=== PATIENT | male | born 1965 | race Caucasian/White ===

== ENCOUNTER 2017-07-15 15:42 | Inpatient (IN) | payer MEDICARE, MEDICAID ==
[~2017-07-15] VITALS: Ht 152.4 cm; Wt 64.5 kg
[2017-07-15] MEDS ORDERED: mag hydrox/Alum hydrox/simeth 30ml oral suspension PO PRN (22:20)
[2017-07-15] MEDS ORDERED: acetaminophen 325mg tablet PO PRN (22:20)
[2017-07-15 22:44] VITALS: BP 122/79
[2017-07-16] MEDS ORDERED: pneumococcal 23-VAL P-sac vacc 25 mcg/0.5ml vial IMVAC ONE (06:15)
[2017-07-16] MEDS ORDERED: FLU VACC QS2017-18 36MOS UP/PF 60 MCG/0.5 ML SYRINGE IMVAC ONE (06:15)
[2017-07-16] MEDS ORDERED: magnesium hydroxide 30ml (MOM) UD suspension PO PRN (07:00)
[2017-07-16 08:14] VITALS: BP 102/65
[2017-07-16] MEDS ORDERED: NO HOME MEDS (11:07)
[2017-07-16] MEDS: Protein Shake (high protein) 240ml (8oz) cup PO SCH (18:00)
[2017-07-16] MEDS: Protein Smoothie (high protein) 240ml (8oz) cup PO SCH (18:00)
[2017-07-16] MEDS ORDERED: non-formulary drug (invega 1.5 MG) PO ONE (18:10)
[2017-07-16] MEDS ORDERED: traZODone 50mg tablet PO PRN (18:10)
[2017-07-16 20:00] VITALS: BP 102/66
[2017-07-16] MEDS ORDERED: PALIPERIDONE 3 MG TAB.ER.24 PO ONE (20:25)
[2017-07-17] MEDS: Protein Smoothie (high protein) 240ml (8oz) cup PO SCH ×3 (08:00→18:00)
[2017-07-17] MEDS: Protein Shake (high protein) 240ml (8oz) cup PO SCH ×3 (08:00→18:00)
[2017-07-17] MEDS ORDERED: PALIPERIDONE 3 MG TAB.ER.24 PO SCH (08:00)
[2017-07-17] MEDS: CITALOpram 10mg tablet PO SCH (08:12)
[2017-07-17] MEDS: acetaminophen 325mg tablet PO PRN ×2 (08:14→19:36)
[2017-07-17 08:18] VITALS: BP 104/59
[2017-07-17] MEDS: traZODone 50mg tablet PO PRN (19:36)
[2017-07-17 20:00] VITALS: BP 113/70
[2017-07-18 08:00] VITALS: BP 108/51
[2017-07-18] MEDS: Protein Smoothie (high protein) 240ml (8oz) cup PO SCH ×3 (08:00→18:00)
[2017-07-18] MEDS: Protein Shake (high protein) 240ml (8oz) cup PO SCH ×4 (08:00→15:00)
[2017-07-18] MEDS: CITALOpram 10mg tablet PO SCH (08:05)
[2017-07-18] MEDS: PALIPERIDONE 3 MG TAB.ER.24 PO SCH (08:05)
[2017-07-18] MEDS: acetaminophen 325mg tablet PO PRN (19:15)
[2017-07-18 20:00] VITALS: BP 115/73
[2017-07-19 07:27] VITALS: BP 105/64
[2017-07-19] MEDS: CITALOpram 10mg tablet PO SCH (08:57)
[2017-07-19] MEDS: PALIPERIDONE 3 MG TAB.ER.24 PO SCH (08:57)
[2017-07-19] MEDS: Protein Smoothie (high protein) 240ml (8oz) cup PO SCH ×3 (08:58→18:00)
[2017-07-19] MEDS: Protein Shake (high protein) 240ml (8oz) cup PO SCH ×2 (13:43→18:00)
[2017-07-19 19:15] VITALS: BP 111/75
[2017-07-19] MEDS: acetaminophen 325mg tablet PO PRN (19:38)
[2017-07-20 08:00] VITALS: BP 112/71
[2017-07-20] MEDS: CITALOpram 10mg tablet PO SCH (08:09)
[2017-07-20] MEDS: PALIPERIDONE 3 MG TAB.ER.24 PO SCH (08:10)
[2017-07-20] MEDS: Protein Smoothie (high protein) 240ml (8oz) cup PO SCH ×3 (08:11→18:03)
[2017-07-20] MEDS: Protein Shake (high protein) 240ml (8oz) cup PO SCH ×3 (09:02→18:03)
[2017-07-20 20:17] VITALS: BP 132/84
[2017-07-21 07:19] VITALS: BP 112/68
[2017-07-21] MEDS: PALIPERIDONE 3 MG TAB.ER.24 PO SCH (08:00)
[2017-07-21] MEDS: citalopram 20mg tablet PO SCH (08:00)
[2017-07-21] MEDS: Protein Smoothie (high protein) 240ml (8oz) cup PO SCH ×3 (08:01→18:01)
[2017-07-21] MEDS: Protein Shake (high protein) 240ml (8oz) cup PO SCH ×3 (08:01→18:01)
[2017-07-21 19:46] VITALS: BP 95/71
[2017-07-22] MEDS: PALIPERIDONE 3 MG TAB.ER.24 PO SCH (07:23)
[2017-07-22] MEDS: citalopram 20mg tablet PO SCH (07:24)
[2017-07-22] MEDS: Protein Shake (high protein) 240ml (8oz) cup PO SCH ×3 (08:11→17:36)
[2017-07-22] MEDS: Protein Smoothie (high protein) 240ml (8oz) cup PO SCH ×3 (08:11→17:36)
[2017-07-22 08:23] VITALS: BP 105/66
[2017-07-22 08:23] LABS: HEMOGLOBIN A1C 5.3 % (4.5-6.2)
[2017-07-22 08:25] LABS: CHOL/HDL RATIO 6.2 (0.00-4.99); CHOLESTEROL 192 MG/DL (0-200); HDL CHOLESTEROL 31 MG/DL (35-60); LDL CHOLESTEROL 134 MG/DL (50-100); TRIGLYCERIDES 204 MG/DL (20-135)
[2017-07-22 19:59] VITALS: BP 120/79
[2017-07-22] MEDS: traZODone 50mg tablet PO PRN (22:36)
[2017-07-23 08:00] VITALS: BP 105/66
[2017-07-23] MEDS: citalopram 20mg tablet PO SCH (08:24)
[2017-07-23] MEDS: PALIPERIDONE 3 MG TAB.ER.24 PO SCH (08:24)
[2017-07-23] MEDS: Protein Smoothie (high protein) 240ml (8oz) cup PO SCH ×3 (08:24→18:00)
[2017-07-23] MEDS: Protein Shake (high protein) 240ml (8oz) cup PO SCH ×3 (08:24→18:00)
[2017-07-23 20:00] VITALS: BP 115/62
[2017-07-23] MEDS: traZODone 50mg tablet PO PRN (21:08)
[2017-07-24 07:22] VITALS: BP 102/62
[2017-07-24] MEDS: Protein Smoothie (high protein) 240ml (8oz) cup PO SCH ×3 (08:00→18:30)
[2017-07-24] MEDS: Protein Shake (high protein) 240ml (8oz) cup PO SCH ×3 (08:00→18:30)
[2017-07-24] MEDS: PALIPERIDONE 3 MG TAB.ER.24 PO SCH (08:02)
[2017-07-24] MEDS: citalopram 20mg tablet PO SCH (08:02)
[2017-07-24 19:00] VITALS: BP 125/77
[2017-07-24] MEDS: traZODone 50mg tablet PO PRN (20:29)
[2017-07-25] MEDS: Protein Smoothie (high protein) 240ml (8oz) cup PO SCH ×3 (07:45→17:55)
[2017-07-25] MEDS: Protein Shake (high protein) 240ml (8oz) cup PO SCH ×3 (07:45→17:55)
[2017-07-25] MEDS: PALIPERIDONE 3 MG TAB.ER.24 PO SCH (07:46)
[2017-07-25] MEDS: citalopram 20mg tablet PO SCH (07:46)
[2017-07-25 08:00] VITALS: BP 106/69
[2017-07-25] MEDS ORDERED: PALI6TAB6 PO (14:58)
[2017-07-25] MEDS ORDERED: CITA20TA11 PO (14:58)
[2017-07-25] MEDS ORDERED: TRAZ-143 PO (14:58)
[2017-07-25 19:05] VITALS: BP 112/65
== END 2017-07-25 19:15 | disposition home or self-care (01) | DRG 885 ==
LOC: ADULT MH 15:42
PROVIDERS: ADMIT Psychiatry & Neurology Psychiatry; ATTEND Psychiatry & Neurology Psychiatry
PROC: 3E0234Z Introduction of Serum, Toxoid and Vaccine into Muscle, Percutaneous Approach (ICD-10-PCS; principal; 2017-07-18)
PROC: 3E0234Z Introduction of Serum, Toxoid and Vaccine into Muscle, Percutaneous Approach (ICD-10-PCS; 2017-07-18)
DX: F33.9 Major depressive disorder, recurrent, unspecified (principal); R45.851 Suicidal ideations; F29 Unspecified psychosis not due to a substance or known physiological condition; Z91.19 Patient's noncompliance with other medical treatment and regimen; K59.00 Constipation, unspecified; Q74.2 Other congenital malformations of lower limb(s), including pelvic girdle; F12.90 Cannabis use, unspecified, uncomplicated; Z79.899 Other long term (current) drug therapy; Z23 Encounter for immunization
CPT/HCPCS: 36415; 80061; 83036; 87070; 90732; A6209; A6212